=== PATIENT | female | born 1990 | race Caucasian/White ===

== ENCOUNTER 2018-09-20 19:41 | Emergency (ER) | payer OTHER ==
[2018-09-21] MEDS ORDERED: KETOROLAC 30 MG INJ IM (01:06)
[2018-09-21] MEDS ORDERED: DEXAMETHASONE 10 MG/ML 1 ML INJ IM (01:30)
[2018-09-21] MEDS ORDERED: METHOCARBAMOL 750 MG TAB PO (01:30)
== END 2018-09-21 03:19 | disposition left against medical advice (07) ==
LOC: FTE 19:41
DX: M54.9 Dorsalgia, unspecified (principal); F17.210 Nicotine dependence, cigarettes, uncomplicated
CPT/HCPCS: 81025; 99282